=== PATIENT | female | born 1940 | race Caucasian/White ===

== ENCOUNTER 2017-12-25 15:18 | Inpatient (IN) ==
[2017-12-25] MEDS ORDERED: Ipratropium/Albuterol Neb 3 ML IH ONE (15:29)
[2017-12-25] MEDS ORDERED: methylPREDNISolone 125 MG/2 ML VIAL IVP ONE (15:36)
--- NOTE | 2017-12-25 15:58 | Emergency Department Note ---
Disposition Clinical Impression: Pneumonia Qualifiers: Pneumonia type: due to unspecified organism Laterality: bilateral Lung location : unspecified part of lung Qualified Code(s): J18.9 - Pneumonia, unspecified organism Disposition: Admitted As Inpatient Condition: Good Referrals: Baltazar Crane MD [Primary Care Provider] - Forms: ED Satisfaction Letter SOB HPI - General Chief Complaint: ED Shortness of Breath/Dyspnea Stated Complaint: ashley/chest melisa/wheezing Time Seen by Provider: 12/25/17 15:34 Source: patient, EMS Limitations: no limitations Nursing Notes Reviewed: Yes Vital Signs Reviewed: Yes - History of Present Illness Patient presents for evaluation of cough and difficulty in breathing. Patient has a history of asthma. Nonsmoker. Does not require home oxygen. States she has been dealing with intermittent asthma episodes for the last 2 weeks. Has had 3 visits to outpatient providers with breathing treatments and steroids. No previous antibiotics. Patient presents today febrile and hypoxic. Initial pulse ox by EMS was mid 80s. The patient has been placed on oxygen and has diffuse wheezing with associated rhonchi on the left. Nonproductive cough. Patient denies chest pain. Denies abdominal pain, nausea, vomiting, change in bowel movements, dysuria. - Related Data Home Medications Medication Instructions Recorded Confirmed Albuterol Neb [Proventil Neb] 2.5 mg IH Q8H 12/25/17 12/25/17 Aspirin Enteric Coated [Aspirin EC] 162 mg PO DAILY 12/25/17 12/25/17 Budesonide/Formoterol 160/4.5 2 puff IH BID 12/25/17 12/25/17 [Symbicort 160/4.5] Ezetimibe [Ezetimibe] 10 mg PO DAILY 12/25/17 12/25/17 Levothyroxine [Synthroid] 88 mcg PO 0630 12/25/17 12/25/17 Lisinopril [Zestril] 20 mg PO BID 12/25/17 12/25/17 Metoprolol Tartrate [Metoprolol 100 mg PO BID 12/25/17 12/25/17 Tartrate] Omeprazole [PriLOSEC] 20 mg PO BID 12/25/17 12/25/17 Allergies Allergy/AdvReac Type Severity Reaction Status Date / Time latex Allergy Hives Verified 12/25/17 15:27 Penicillins Allergy Hives Verified 12/25/17 15:27 Review of Systems: CONSTITUTIONAL: Fevers HEENT: Eyes: No visual changes. Ears, Nose, Throat: No hearing loss, difficulty talking or unable to swallow. SKIN: No rash or itching. CARDIOVASCULAR: No chest pain, chest pressure or chest discomfort. No palpitations or edema. RESPIRATORY: Shortness of breath and cough GASTROINTESTINAL: No anorexia, nausea, vomiting or diarrhea. No abdominal pain or blood. GENITOURINARY: No burning on urination or hematuria. NEUROLOGICAL: No headache, dizziness, syncope, paralysis, ataxia, numbness or tingling in the extremities. No change in bowel or bladder control. MUSCULOSKELETAL: No muscle pain, back pain, joint pain or stiffness. 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 - Social History Smoking Status: Former smoker Smokeless Tobacco Status: No Alcohol use: Reports: none Drug use: Reports: none Physical Exam General: Well appearing, nontoxic, no acute distress Head: Normocephalic Atraumatic Eyes: PERRL, EOMI ENT: Airway patent, no stridor Neck: supple, no meningismus Chest: Diffuse wheezing left-sided rhonchi Cardiac: Regular rhythm Abdomen: soft, nontender, nondistended; no guarding, rebound, or tenderness to percussion Musculoskeletal: Calves symmetric, nontender, no palpable cord Skin: No rash, normal skin tone Neuro: Alert and Oriented to person, place, and time; - General Limitations: no limitations General appearance: alert Course - Reevaluation(s) Reevaluation #1: Patient with elevated white count and lactic acid. Patient has pneumonia on chest x-ray. No recent antibiotic use her hospital stay. Patient will be admitted for community-acquired pneumonia. - Consultations Consultation #1: Discussed with hospitalist. Patient accepted for admission. Vital Signs Temperature 99.6 F 12/25/17 15:25 Pulse Rate 117 12/25/17 15:25 Respiratory Rate 26 12/25/17 15:25 Blood Pressure 139/83 12/25/17 15:25 O2 Sat by Pulse Oximetry 94 12/25/17 15:25 Temperature 99.6 F 12/25/17 15:25 Pulse Rate 109 12/25/17 19:44 Respiratory Rate 16 12/25/17 19:44 Blood Pressure 146/92 12/25/17 19:44 O2 Sat by Pulse Oximetry 92 12/25/17 19:44 Oxygen Delivery Oxygen Delivery Nasal Cannula Shortness of Breath/Dyspnea - Lab Data Result diagrams: 12/25/17 16:30 12/25/17 16:30 Lab Results 12/25/17 12/25/17 12/25/17 Range/Units 16:30 16:30 16:30 WBC 17.1 H (4.3-11.1) K/mcL RBC 4.26 (3.82-4.97) M/mcL Hgb 13.0 (11.5-15.4) g/dL Hct 40.4 (35.3-44.9) % MCV 94.8 (83.0-100.0) fL MCH 30.5 (28.0-33.3) pg MCHC 32.2 (31.6-35.5) g/dL RDW 13.5 (11.5-14.5) % Plt Count 305 (140-400) K/mcL MPV 9.8 (9.4-12.4) fL Immature Gran % 0.7 (0-4) % Seg Neutrophils % 75.7 % Lymphocytes % 11.0 % Monocytes % 12.4 % Eosinophils % 0.1 % Basophils % 0.1 % Neutrophils # 12.9 H (1.6-8.9) K/mcL Lymphocytes # 1.9 (0.6-4.6) K/mcL Monocytes # 2.1 H (0.0-1.3) K/mcL Eosinophils # 0.0 (0.0-0.6) K/mcL Basophils # 0.0 (0.0-0.2) K/mcL Sodium 134 L (136-145) mEq/L Potassium 3.9 (3.5-5.1) mEq/L Chloride 98 (98-107) mEq/L Carbon Dioxide 22 L (23-29) mEq/L BUN 32 H (8-23) mg/dL Creatinine 1.69 H (0.60-1.20) mg/dL Est GFR ( Amer) 35 L (> 60) Est GFR (Non-Af Amer) 29 L (> 60) BUN/Creatinine Ratio 19 (6-26) Glucose 123 H (70-105) mg/dL Calculated Osmolality 286 (280-300) Lactic Acid 2.9 H (0.5-2.2) mmol/L Calcium 9.2 (8.6-10.3) mg/dL Troponin I (< 0.04) ng/mL B-Natriuretic Peptide (Less than 100) pg/mL 12/25/17 12/25/17 12/25/17 Range/Units 16:30 16:30 18:35 WBC (4.3-11.1) K/mcL RBC (3.82-4.97) M/mcL Hgb (11.5-15.4) g/dL Hct (35.3-44.9) % MCV (83.0-100.0) fL MCH (28.0-33.3) pg MCHC (31.6-35.5) g/dL RDW (11.5-14.5) % Plt Count (140-400) K/mcL MPV (9.4-12.4) fL Immature Gran % (0-4) % Seg Neutrophils % % Lymphocytes % % Monocytes % % Eosinophils % % Basophils % % Neutrophils # (1.6-8.9) K/mcL Lymphocytes # (0.6-4.6) K/mcL Monocytes # (0.0-1.3) K/mcL Eosinophils # (0.0-0.6) K/mcL Basophils # (0.0-0.2) K/mcL Sodium (136-145) mEq/L Potassium (3.5-5.1) mEq/L Chloride (98-107) mEq/L Carbon Dioxide (23-29) mEq/L BUN (8-23) mg/dL Creatinine (0.60-1.20) mg/dL Est GFR ( Amer) (> 60) Est GFR (Non-Af Amer) (> 60) BUN/Creatinine Ratio (6-26) Glucose (70-105) mg/dL Calculated Osmolality (280-300) Lactic Acid 1.7 (0.5-2.2) mmol/L Calcium (8.6-10.3) mg/dL Troponin I 0.03 (< 0.04) ng/mL B-Natriuretic Peptide 93 (Less than 100) pg/mL Attestation Statement - Attestation Attestation: I examined this patient and my medical decision-making was reviewed with the Resident Physician. I agree with the documented findings, disposition and treatment plan as described except to the extent set forth below. Patient to ED with shortness of breath and cough. History of asthma. On examination she was found to be hypoxic. Rhonchi and coarse breath sounds on my evaluation. Plan. The patient has patchy airspace disease which is likely pneumonia. White blood cell count 17. Patient meets sepsis criteria based on her white blood cell count and tachycardia. Starting IV antibiotic and will admit. 35 minutes of critical care exclusive of separately billable procedures.
[2017-12-25 16:42] LABS: Basophils % 0.1 %; Eosinophils % 0.1 %; Hematocrit 40.4 % (35.3-44.9); Immature Granulocytes % 0.7 % (0-4); Lymphocytes # 1.9 K/mcL (0.6-4.6); Mean Corpuscular HGB Conc 32.2 g/dL (31.6-35.5); Mean Corpuscular Hemoglobin 30.5 pg (28.0-33.3); Mean Corpuscular Volume 94.8 fL (83.0-100.0); Mean Platelet Volume 9.8 fL (9.4-12.4); Monocytes # 2.1 K/mcL (0.0-1.3); Monocytes % 12.4 %; Neutrophils # 12.9 K/mcL (1.6-8.9); Platelet Count 305 K/mcL (140-400); Red Blood Count 4.26 M/mcL (3.82-4.97); Red Cell Distribution Width 13.5 % (11.5-14.5); Segmented Neutrophils % 75.7 %
[2017-12-25] MEDS ORDERED: Azithromycin 500 MG in D5% in Water 250 ML IVPB ONE (16:52)
[2017-12-25] MEDS ORDERED: cefTRIAXone 1,000 MG in Water for inj. (sterile) 10 ML IVP ONE (16:52)
[2017-12-25] MEDS ORDERED: 0.9 % Sodium Chloride 1,000 ML IVC ONE (16:52)
[2017-12-25 17:10] LABS: Calcium 9.2 mg/dL (8.6-10.3); Potassium 3.9 mEq/L (3.5-5.1)
[2017-12-25] MEDS: 0.9 % Sodium Chloride 1,000 ML IVC ONE ×2 (18:27→19:43)
[2017-12-25] MEDS ORDERED: 0.9 % Sodium Chloride 500 ML IVC ONE (18:51)
[2017-12-26] MEDS: Metoprolol 100 MG TABLET PO SCH ×3 (00:31→21:30)
[2017-12-26] MEDS: Aspirin Enteric Coated 81 MG Tablet PO SCH ×2 (00:31→08:02)
--- NOTE | 2017-12-26 00:43 | Internal Med History&Physical ---
<JimmysharonGerman - Last Filed: 12/26/17 03:04> Date of Encounter: 12/26/17 Time of Encounter: 22:00 Assessment and Plan (1) Sepsis Current visit: Yes Status: Acute Patient meets criteria for sepsis based on WBC of 17.1, Tachycardia, Tachypnea, Lactic acid of 2.9 on admission Likely secondary to PNA Patient received 1g Ceftriaxone and 500mg Azithromycin for CAP coverage in the ED Will continue abx repeat LA 1.7 blood cultures were drawn and results are pending. Qualifiers: Sepsis type: sepsis due to unspecified organism Qualified Code(s): A41.9 - Sepsis, unspecified organism (2) Pneumonia Current visit: Yes Status: Acute Patient with suspected PNA on CXR Patient with increased shortness of breath, and chest congestion. Patient sating at 94 requiring 2L NC Patient received 1g Ceftriaxone and 500mg Azithromycin for CAP coverage in the ED Will continue abx Patient with hx of asthma continue home asthma medications Qualifiers: Pneumonia type: due to unspecified organism Laterality: bilateral Lung location: lower lobe of lung Qualified Code(s): J18.9 - Pneumonia, unspecified organism (3) Asthma Current visit: Yes Status: Acute Patient with hx of asthma on symbicort and alubuterol nebulizer. continue home medications. Qualifiers: Asthma severity: unspecified severity Asthma persistence: unspecified Asthma complication type: unspecified Qualified Code(s): J45.909 - Unspecified asthma, uncomplicated (4) Hypertension Current visit: Yes Status: Acute Pt with hx of HTN on home metoprolol 100mg BID and Lisinopril 20mg holding lisinopril secondary to cr elevated above baseline. Qualifiers: Hypertension type: essential hypertension Qualified Code(s): I10 - Essential (primary) hypertension (5) CKD (chronic kidney disease), stage III Current visit: Yes Status: Acute Hx of CKD stage III current Cr 1.69 Baseline 1.2-1.44 will give subQ heparin as DVT ppx as a result (6) Hypothyroidism Current visit: Yes Status: Acute Pt on synthroid. continue home synthroid Qualifiers: Hypothyroidism type: unspecified Qualified Code(s): E03.9 - Hypothyroidism , unspecified Internal Medicine - H&P: HPI Chief complaint: Shortness of breath Admitted From: Emergency Dept Plans for Post Hospital Care: Home History of present illness: Ms. Gallardo is a 77 year old female c PMHx of asthma, HTN, hypothyroidism who reports to the ED c/o SOB and non productive cough x 3 weeks. Patient reports seeing her primary concerning this as well as an urgent care visit. Patient received asthma medications and steroids per patient did not receive abx. However review of eCW shows z pack prescribed on 12/10/17. Patient denies Fever, chills, chest pain, abd pain, N, V, D. Patient was hypoxic to the mid 90s in ED requiring 2L NC. Not on home oxygen. Patient's work up significant for WBC 17.1 , LA 2.9, mild bump in Cr to 1.69. CXR demonstrated possible PNA. Patient met sepsis criteria and was admitted. Past Med Surg Social Fam HX - Past Medical History Medical history: asthma, hypertension, thyroid disease Psychiatric history: anxiety - Social History Smoking Status: Former smoker Smokeless Tobacco Status: No Alcohol use: none Drug use: none Internal Medicine - H&P: Meds Albuterol Neb [Proventil Neb] 2.5 mg IH Q8H 12/25/17 [History] Aspirin Enteric Coated [Aspirin EC] 162 mg PO DAILY 12/25/17 [History] Budesonide/Formoterol 160/4.5 [Symbicort 160/4.5] 2 puff IH BID 12/25/17 [ History] Ezetimibe [Ezetimibe] 10 mg PO DAILY 12/25/17 [History] Levothyroxine [Synthroid] 88 mcg PO 0630 12/25/17 [History] Lisinopril [Zestril] 20 mg PO BID 12/25/17 [History] Metoprolol Tartrate [Metoprolol Tartrate] 100 mg PO BID 12/25/17 [History] Omeprazole [PriLOSEC] 20 mg PO BID 12/25/17 [History] 3 Allergy/AdvReac Type Severity Reaction Status Date / Time latex Allergy Hives Verified 12/25/17 15:27 Penicillins Allergy Hives Verified 12/25/17 15:27 All Systems PM: A 10-system review of systems was performed and is negative for pertinent findings except as documented above in the HPI. - Constitutional Vitals: Temp Pulse Resp BP Pulse Ox 98.2 F 106 18 148/70 93 12/25/17 20:40 12/25/17 20:40 12/25/17 20:40 12/25/17 20:40 12/26/17 00:34 General appearance: Present: A&O X 3, pleasant, no acute distress, answers questions appropriately - Head Head exam: Present: atraumatic, normocephalic - Eye Eye exam: Present: PERRL, conjuntiva pink, sclera anicteric Pupils: Present: PERRL - Neck Neck exam general surgery: Present: supple, trachea midline. Absent: lymphadenopathy - Respiratory Respiratory exam: Present: rhonchi (basilar). Absent: accessory muscle use, rales, wheezes Additional comments: upper respiratory noise - Cardiovascular Cardiovascular exam: Present: RRR, +S1, +S2 - GI/Abdominal GI/Abdominal exam: Present: normal bowel sounds, soft, no peritoneal signs. Absent: distended, tenderness - Extremities Exam Extremities exam: Present: warm, radial pulses palpable and symmetrical. Absent : calf tenderness, cyanotic, pedal edema - Neurological Exam Neurological exam: Present: CN II-XII intact, oriented X3, no focal deficits. Absent: facial droop, speech deficit - Skin Skin exam: Present: dry, intact Internal Med - H&P Results - Labs CBC & Chem 7: 12/25/17 16:30 12/25/17 16:30 <Stephen Ocampo P - Last Filed: 12/26/17 04:51> Date of Encounter: 12/26/17 Internal Medicine - H&P: HPI History of present illness: Ms. Gallardo is a 77 year old female All Systems PM: A 10-system review of systems was performed and is negative for pertinent findings except as documented above in the HPI. - Constitutional Vitals: Temp Pulse Resp BP Pulse Ox 97.9 F 95 17 111/71 94 12/26/17 00:40 12/26/17 04:00 12/26/17 04:00 12/26/17 04:00 12/26/17 04:00 Internal Med - H&P Results - Labs CBC & Chem 7: 12/25/17 16:30 12/25/17 16:30 - Attending Attestation I examined this patient and my medical decision-making was reviewed with the Resident Physician. I agree with the documented findings, disposition and treatment plan as described except to the extent set forth below. Patient seen and examined. Chart reviewed. I agree with the recommendation and plan discussed by the resident physician. Patient need cardiology opinion tomorrow.
--- NOTE | 2017-12-26 01:01 | Event Note ---
<German Poe - Last Filed: 12/26/17 02:58> Date of Encounter: 12/26/17 Time of Encounter: 00:44 Received page that patient was in a fib with RVR by nursing staff. Examined patient who is lying comfortably in bed. HR 140s-150s. BP 120s/80s. Patient reports feeling hear trace and feeling a little funny. Patient denies chest pain , shortness of breath. She reports she has felt liek this previously at home, but has never been told she had a fib before. She reports being told she has a heart murmur but denies any other cardiac history. Patient on 100mg metoprolol tartrate BID. Started by giving patient her evening dose. Patient remained tachycardic so 30 minutes later order for 5mg IV push Q5min x 3 doses as needed ordered. Patient's HR decreased to 110s-130s after metoprolol IV. Ordered 20mg IV diltiazem bolus. Which dropped patient's HR to 65. Patient will be started on diltiazem drip at rate of 5. Patient is hypothyroid on synthroid will check TSH level. Patient had recent sleep study which ruled out sleep apnea. Patient had an echo in February of 2016 which showed: Normal LV chamber size, wall thickness, and systolic function. LVEF 60%. Mild left ventricular diastolic dysfunction. Normal right ventricular structure and function. Mildly dilated left atrium. There is a probable PFO noted by color Doppler. No significant valvular dysfunction. No evidence of pulmonary hypertension. Left Ventricular Wall Motion: Rest Echo Findings All wall segments showed normal motion. Patient reports often feeling this same sensation at home but never bringing it up with her PCP. Patient was given dose of Sub Q heparin. 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 No hx of falls or bleeds. <Stephen Ocampo - Last Filed: 12/26/17 04:51> Date of Encounter: 12/26/17 I examined this patient and my medical decision-making was reviewed with the Resident Physician. I agree with the documented findings, disposition and treatment plan as described except to the extent set forth below.
[2017-12-26] MEDS: *HR* Metoprolol 5 MG/5 ML VIAL IVP SCH ×3 (01:23→01:48)
[2017-12-26] MEDS: *HR* Heparin 5,000 UNIT/ML VIAL SQ SCH ×4 (01:23→15:01)
[2017-12-26] MEDS ORDERED: 0.9 % Sodium Chloride 250 ML ONE (02:26)
[2017-12-26 05:06] LABS: Basophils % 0.1 %; Hematocrit 34.3 % (35.3-44.9); Immature Granulocytes % 0.6 % (0-4); Lymphocytes # 0.6 K/mcL (0.6-4.6); Lymphocytes % 3.7 %; Mean Corpuscular HGB Conc 32.4 g/dL (31.6-35.5); Mean Corpuscular Hemoglobin 30.2 pg (28.0-33.3); Mean Corpuscular Volume 93.2 fL (83.0-100.0); Mean Platelet Volume 10.1 fL (9.4-12.4); Monocytes # 0.6 K/mcL (0.0-1.3); Monocytes % 3.6 %; Neutrophils # 14.7 K/mcL (1.6-8.9); Platelet Count 275 K/mcL (140-400); Red Blood Count 3.68 M/mcL (3.82-4.97); Red Cell Distribution Width 13.6 % (11.5-14.5)
[2017-12-26 05:13] LABS: Hemoglobin 11.1 g/dL (11.5-15.4)
[2017-12-26 05:22] LABS: Calcium 8.5 mg/dL (8.6-10.3); Potassium 4.6 mEq/L (3.5-5.1)
[2017-12-26] MEDS: Budesonide/Formoterol 160/4.5 MDI IH SCH ×2 (07:52→22:51)
[2017-12-26] MEDS: Albuterol 2.5 MG/3 ML NEBULIZER IH SCH ×3 (07:52→22:51)
[2017-12-26] MEDS: cefTRIAXone 1,000 MG in Water for inj. (sterile) 20 ML 10 ML IVP SCH (08:02)
--- NOTE | 2017-12-26 10:13 | Internal Med Progress Note ---
<Nikolay Chapin - Last Filed: 12/26/17 10:11> Date of Encounter: 12/26/17 Time of Encounter: 10:11 - Assessment and plan (1) Sepsis Current Visit: Yes Status: Acute Assessment and plan: Likely secondary to pneumonia. Patient meet sepsis criteria with a lid white count 15.9 and tachycardia. Continue IV antibiotics of ceftriaxone and azithromycin day #2 Qualifiers: Sepsis type: sepsis due to unspecified organism Qualified Code(s): A41.9 - Sepsis, unspecified organism (2) Pneumonia Current Visit: Yes Status: Acute Assessment and plan: Chest x-ray showed possible pneumonia Continue with current antibiotic therapy of ceftriaxone and azithromycin day #2 Continue Oxygen supplementation Qualifiers: Pneumonia type: due to unspecified organism Laterality: bilateral Lung location: lower lobe of lung Qualified Code(s): J18.9 - Pneumonia, unspecified organism (3) Atrial fibrillation with RVR Current Visit: Yes Status: Acute Assessment and plan: Patient has new onset atrial fibrillation with rapid ventricular response. Patient was given Lopressor and has been started on a diltiazem drip Cardiology will be consulted. (4) CKD (chronic kidney disease), stage III Current Visit: Yes Status: Acute Assessment and plan: Patient has history of CAD stage III Patient's creatinine has returned to baseline at 1.34 GFR of 38 is approximately at the patient's baseline. (5) Hypertension Current Visit: Yes Status: Acute Assessment and plan: History of hypertension Continue with Lopressor Patient is currently normotensive no further antihypertensive medication is necessary at this time. Qualifiers: Hypertension type: essential hypertension Qualified Code(s): I10 - Essential (primary) hypertension (6) Asthma Current Visit: Yes Status: Acute Assessment and plan: Patient has history of asthma Continue her Symbicort and nebulized treatments Qualifiers: Asthma severity: unspecified severity Asthma persistence: unspecified Asthma complication type: unspecified Qualified Code(s): J45.909 - Unspecified asthma, uncomplicated (7) Hypothyroidism Current Visit: Yes Status: Acute Assessment and plan: Patient has history of hypothyroidism Current TSH of 1.427. Patient is currently therapeutic Continue with her home Synthroid. Qualifiers: Hypothyroidism type: unspecified Qualified Code(s): E03.9 - Hypothyroidism , unspecified - Subjective Interval history: Patient was admitted to the hospital for pneumonia. She states that she has been having wheezing and coughing for the past 3 weeks and has had multiple attempts at outpatient therapy but has failed. She says that she has been feeling short of breath and having more difficulty with breathing. Patient states that today she is feeling somewhat better and is not coughing quite as much. Patient denies any history of atrial fibrillation. However there was a report overnight that she had it for fibrillation with rapid ventricular response requiring medication intervention. Patient denies any home oxygen use. - Constitutional Vitals: Temp Pulse Resp BP Pulse Ox 97.9 F 93 16 115/80 95 12/26/17 00:40 12/26/17 07:06 12/26/17 07:57 12/26/17 07:06 12/26/17 07:57 General appearance: Present: A&O X 3, pleasant, no acute distress, answers questions appropriately - Head Head exam: Present: atraumatic, normocephalic - Neck Neck exam general surgery: Present: full ROM, normal inspection, trachea midline - Respiratory Respiratory exam: Present: rhonchi (Bilaterally) - Cardiovascular Cardiovascular exam: Present: irregular rhythm, +S1, +S2, tachycardia - GI/Abdominal GI/Abdominal exam: Present: normal bowel sounds, soft, no peritoneal signs. Absent: distended, tenderness - Extremities Exam Extremities exam: Present: full ROM, warm. Absent: pedal edema - Neurological Exam Neurological exam: Present: alert, oriented X3, no focal deficits. Absent: facial droop, speech deficit - Psychiatric Psychiatric exam: Present: normal affect, normal mood - Skin Skin exam: Present: dry, intact, warm Internal Medicine: Result - Labs CBC & Chem 7: 12/26/17 04:35 12/26/17 04:35 Consult Discharge Plan - Plan Referrals: Baltazar Crane MD [Primary Care Provider] - <Sudeep Mars - Last Filed: 12/26/17 11:04> Date of Encounter: 12/26/17 - Constitutional Vitals: Temp Pulse Resp BP Pulse Ox 97.9 F 93 16 115/80 95 12/26/17 00:40 12/26/17 07:06 12/26/17 07:57 12/26/17 07:06 12/26/17 07:57 Internal Medicine: Result - Labs CBC & Chem 7: 12/26/17 04:35 02/16/18 04:35 - Attending Attestation Sepsis secondary to community-acquired pneumonia, unknown agents Continue Rocephin and azithromycin New-onset atrial fibrillation with RVR Continue Cardizem drip, consult cardiology was consulted, anticoagulation would be recommended, the patient will choose adequate ablation therapy after talking to the cardiology team History of PFO, repeat echocardiogram No history of CVAs I examined this patient and my medical decision-making was reviewed with the Resident Physician. I agree with the documented findings, disposition and treatment plan as described except to the extent set forth below.
[2017-12-26] MEDS ORDERED: Furosemide 20 MG/2 ML VIAL IVP ONE (11:08)
[2017-12-26] MEDS: Azithromycin 500 MG in D5% in Water 250 ML IVPB SCH (14:43)
[2017-12-26] MEDS: Diltiazem CD (24hr) 120 MG CAPSULE PO SCH (14:43)
--- NOTE | 2017-12-26 15:02 | Cardiology Consult Note ---
Date of Encounter: 12/26/17 Time of Encounter: 14:30 Assessment and Plan (1) Pneumonia Current Visit: Yes Status: Acute Per cardiology: -Admitted with pneumonia. -Management per primary service. Qualifiers: Pneumonia type: due to unspecified organism Laterality: bilateral Lung location: lower lobe of lung Qualified Code(s): J18.9 - Pneumonia, unspecified organism (2) Atrial fibrillation Current Visit: Yes Status: Acute Per cardiology: -Atrial fibrilaltion noted per telemetry. -ON cardizem drip at 5mg/hour. -HR now controlled. -TTE pending. -[id number] score 6 (age, gender, HTN, TIA hx). -Previous TTE 02/2016 with LVEF 60%, mild diastolic dysufnction, mildly dilated left atrium, probably PFO, no significant valvular dysfunction, all wall segments with normal motion. -Will start cardizem CD 120mg daily. Stop cardizem drip 2 hours after oral cardizem given. -Will start therapeutic lovenox for anticoagulation. Pending TTE results, will determine intermediate oral anticoagulation. Qualifiers: Atrial fibrillation type: unspecified Qualified Code(s): I48.91 - Unspecified atrial fibrillation Discussion w patient/family: The assessment and plan as outlined above was discussed with the patient and/or family members who expressed understanding and agreement. All questions were answered. Thank you for involving us in the care of your patient. Please call with any questions. Discussed and reviewed with . History of Present Illness Consult date: 12/26/17 Requesting physician: Nikolay Chapin Consult reason: kirstie Chief complaint: cough, shortness of breath History of present illness: Ms. Gallardo is a 77 year old female with a relevant past medical history of HTN, asthma, MVP, CKD, hypothyroidism, hyperlipidemia, TIA. Patient presented to [facility] with complaints of shortness of breath and cough. Cardiology has been asked to see and evaluate patient due to new onset atrial fibrillation. Patient reports palpitations. States she has had palpitations at home intermittently for years. Patient deneis active bleeding or blood loss. Past Med Surg Social Fam HX - Past Medical History Attestation: Yes The following information was validated with the patient. Source: patient, old records reviewed Medical history: asthma, hypertension, thyroid disease Psychiatric history: anxiety - Social History Smoking Status: Former smoker Smokeless Tobacco Status: No Alcohol use: none Drug use: none Medications and Allergies Albuterol Neb [Proventil Neb] 2.5 mg IH Q8H 12/25/17 [History] Aspirin Enteric Coated [Aspirin EC] 162 mg PO DAILY 12/25/17 [History] Budesonide/Formoterol 160/4.5 [Symbicort 160/4.5] 2 puff IH BID 12/25/17 [ History] Ezetimibe [Ezetimibe] 10 mg PO DAILY 12/25/17 [History] Levothyroxine [Synthroid] 88 mcg PO 0630 12/25/17 [History] Lisinopril [Zestril] 20 mg PO BID 12/25/17 [History] Metoprolol Tartrate [Metoprolol Tartrate] 100 mg PO BID 12/25/17 [History] Omeprazole [PriLOSEC] 20 mg PO BID 12/25/17 [History] 3 Allergy/AdvReac Type Severity Reaction Status Date / Time latex Allergy Hives Verified 12/25/17 15:27 Penicillins Allergy Hives Verified 12/25/17 15:27 All Systems Review: A 10-system review of systems was performed and is negative for pertinent findings except as documented above in the HPI. - Cardiovascular Cardiovascular: as per HPI, dyspnea at rest, dyspnea on exertion - Respiratory Respiratory: cough Physical Examination Vital Signs, Last 4 Hours Temp Pulse Resp BP Pulse Ox 12/26/17 14:50 16 95 12/26/17 11:11 97.8 F 98 20 147/93 97 General: Conversant, No Apparent Distress HEENT: Atraumatic, Normocephaly, Mucus Membranes Moist Neck: No JVD, Normal carotid pulses Cardiac: Normal S1 and S2, No Murmur, Other (Irregularly irregular ) Lungs: Normal Breath Sounds, No Wheeze, Rales, Rhonchi Neuro: Alert and responsive, No focal deficits noted Abdomen: Soft, Non-Tender Skin: No rashes noted on visualized skin Musculoskeletal: No Chest Wall Tenderness Extremities: No Clubbing, No Cyanosis, No Edema, Normal Pulses Results 12/26/17 04:35 12/26/17 04:35 Impressions Chest X-Ray 12/25/17 15:36 IMPRESSION: Mild patchy airspace disease the lung bases bilaterally, likely atelectasis, although pneumonia does remain in the differential. D/ / Matthew Ott MD / Matthew Ott MD Interpreting Provider: Matthew Ott MD Active Medications Albuterol Sulfate (Proventil Neb) 2.5 mg IH [id number] ROQUE PRN Reason: Protocol Stop: 06/27/18 07:01 Last Admin: 12/26/17 14:48 Dose: 2.5 mg Aspirin (Aspirin Ec) 81 mg PO DAILY ROQUE Stop: 06/27/18 00:31 Last Admin: 12/26/17 08:02 Dose: 81 mg Budesonide/Formoterol Fumarate (Symbicort) 2 puff IH BIDR ROQUE PRN Reason: Protocol Stop: 06/27/18 10:01 Last Admin: 12/26/17 07:52 Dose: 2 puff Diltiazem HCl (Cardizem Cd) 120 mg PO DAILY ROQUE Stop: 06/27/18 14:31 Last Admin: 12/26/17 14:43 Dose: 120 mg Enoxaparin Sodium (Lovenox *Pharmacy Wt Based*) 90 mg 1 mg/kg (90 mg) SQ Q12HR ROQUE PRN Reason: Protocol Stop: 06/27/18 18:01 Azithromycin 500 mg/ Dextrose 250 mls @ 252 mls/hr IVPB Q24H ROQUE Stop: 06/27/18 15:01 Last Admin: 12/26/17 14:43 Dose: 252 mls/hr Ceftriaxone Sodium 1,000 mg/ (Sterile Water) 10 mls @ 300 mls/hr IVP DAILY ROQUE Stop: 06/27/18 09:01 Last Admin: 12/26/17 08:02 Dose: 300 mls/hr Diltiazem HCl 125 mg/ Sodium (Chloride) 125 mls @ 5 mls/hr IVC .Q24H ROQUE PRN Reason: 5 MG/HR Stop: 06/27/18 02:01 Last Admin: 12/26/17 02:27 Dose: 5 mg/hr, 5 mls/hr Levothyroxine Sodium (Synthroid) 88 mcg PO DAILY@0630 ROQUE Stop: 06/27/18 06:31 Last Admin: 12/26/17 05:54 Dose: 88 mcg Metoprolol Tartrate (Lopressor) 100 mg PO BID [facility] Stop: 06/27/18 00:16 Last Admin: 12/26/17 08:02 Dose: 100 mg Metoprolol Tartrate (Lopressor) 5 mg IVP Q5MIN [facility] Stop: 12/28/17 01:01 Last Admin: 12/26/17 01:48 Dose: 5 mg Omeprazole (Prilosec) 20 mg PO BIDAC ROQUE PRN Reason: Protocol Stop: 06/27/18 07:31 Last Admin: 12/26/17 08:01 Dose: 20 mg Laboratory Tests 12/26/17 12/26/17 12/26/17 04:35 04:35 04:35 WBC 15.9 H Hgb 11.1 L D Potassium 4.6 Creatinine 1.34 H TSH 1.427 - Imaging and Cardiology Chest Xray: report reviewed Echo: pending, report reviewed - EKG Interpretation EKG results cardiology: personally reviewed (ECG on admission with ST.), other ( Telemetry reviewed with average HR previous 12 hours noted to be 95, atrial fibrillation. PVCs noted. Currenty 70-80s at bedside.) Consult Discharge Plan - Plan Referrals: Baltazar Crane MD [Primary Care Provider] -
[2017-12-26] MEDS: *HR* Enoxaparin 100 MG/ML SYRINGE SQ SCH (17:37)
[2017-12-27] MEDS ORDERED: Acetaminophen 325 MG TABLET PO PRN (03:08)
[2017-12-27 03:58] LABS: Basophils % 0.1 %; Hematocrit 37.5 % (35.3-44.9); Hemoglobin 11.8 g/dL (11.5-15.4); Immature Granulocytes % 0.8 % (0-4); Lymphocytes # 1.5 K/mcL (0.6-4.6); Lymphocytes % 7.7 %; Mean Corpuscular HGB Conc 31.5 g/dL (31.6-35.5); Mean Corpuscular Volume 95.4 fL (83.0-100.0); Mean Platelet Volume 10.7 fL (9.4-12.4); Monocytes # 1.4 K/mcL (0.0-1.3); Monocytes % 7.4 %; Platelet Count 299 K/mcL (140-400); Red Blood Count 3.93 M/mcL (3.82-4.97); Red Cell Distribution Width 13.6 % (11.5-14.5)
[2017-12-27 05:05] LABS: Calcium 8.8 mg/dL (8.6-10.3); Potassium 5.4 mEq/L (3.5-5.1)
[2017-12-27] MEDS: *HR* Enoxaparin 100 MG/ML SYRINGE SQ SCH (06:34)
[2017-12-27] MEDS: Budesonide/Formoterol 160/4.5 MDI IH SCH ×2 (08:06→22:57)
[2017-12-27] MEDS: Albuterol 2.5 MG/3 ML NEBULIZER IH SCH ×3 (08:06→22:57)
[2017-12-27] MEDS: cefTRIAXone 1,000 MG in Water for inj. (sterile) 20 ML 10 ML IVP SCH (08:44)
[2017-12-27] MEDS: Diltiazem CD (24hr) 120 MG CAPSULE PO SCH (08:46)
[2017-12-27] MEDS: Metoprolol 100 MG TABLET PO SCH ×2 (08:47→20:51)
[2017-12-27] MEDS: Aspirin Enteric Coated 81 MG Tablet PO SCH (08:47)
--- NOTE | 2017-12-27 10:53 | Cardiology Progress Note ---
Date of Encounter: 12/27/17 Time of Encounter: 08:00 Assessment and Plan (1) Pneumonia Current Visit: Yes Status: Acute Per cardiology: -Admitted with pneumonia. -Management per primary service. Qualifiers: Pneumonia type: due to unspecified organism Laterality: bilateral Lung location: lower lobe of lung Qualified Code(s): J18.9 - Pneumonia, unspecified organism (2) Atrial fibrillation Current Visit: Yes Status: Acute Per cardiology: -Atrial fibrilaltion noted per telemetry. -Average HR previous 12 hours noted to be 83, a.fib. -ON beta sandra and po cardizem. -TTE with LVEF preserved. No significant valvular dysfunction, all wall segments with normal motion. -[id number] score 6 (age, gender, HTN, TIA hx). On therapeutic lovenox. -Sent priced check for eliquis. Spoke with [facility]. Eliquis $3.70/ month. -Started eliquis 5mg BID. -Cardiology will sign off and will follow in outpatient setting. Follow up set. Qualifiers: Atrial fibrillation type: unspecified Qualified Code(s): I48.91 - Unspecified atrial fibrillation Discussion w patient/family: The assessment and plan as outlined above was discussed with the patient who expressed understanding and agreement. All questions were answered. Thank you for involving us in the care of your patient. Please call with any questions. Discussed and reviewed with . Subjective Principal diagnosis: pneumonia, atrial fibrillation Interval history: Pateint states she feels better this morning. Denies complaints. Objective Vital Signs, Last 4 Hours Resp Pulse Ox 12/27/17 08:09 16 98 Vital Signs Temperature 99.6 F 12/25/17 15:25 Pulse Rate 117 12/25/17 15:25 Respiratory Rate 26 12/25/17 15:25 Blood Pressure 139/83 12/25/17 15:25 O2 Sat by Pulse Oximetry 94 12/25/17 15:25 Temperature 97.6 F 12/27/17 06:50 Pulse Rate 72 12/27/17 06:50 Respiratory Rate 16 12/27/17 08:09 Blood Pressure 117/72 12/27/17 06:50 O2 Sat by Pulse Oximetry 98 12/27/17 08:09 Oxygen Delivery Oxygen Delivery Room Air General: Conversant, No Apparent Distress HEENT: Atraumatic, Normocephaly, Mucus Membranes Moist Neck: No JVD, Normal carotid pulses Cardiac: Normal S1 and S2, No Murmur, Other (Irregularly irregular ) Lungs: Normal Breath Sounds, No Wheeze, Rales, Rhonchi Neuro: Alert and responsive, No focal deficits noted Abdomen: Soft, Non-Tender Skin: No rashes noted on visualized skin Musculoskeletal: No Chest Wall Tenderness Extremities: No Clubbing, No Cyanosis, No Edema, Normal Pulses Results 12/27/17 02:47 12/27/17 04:32 Lab Results Impressions Echocardiogram 12/26/17 10:50 Impressions: LVEF 60-65%. Normal LV chamber size, wall thickness and function. Indeterminate diastolic function. Normal right ventricular structure and function. Mildly dilated left atrium. No evidence of PFO with agitated saline contrast. No evidence of pulmonary hypertension. Left Ventricular Wall Motion: Rest Echo Findings All wall segments showed normal motion. Findings: Study Quality * Technically adequate exam. ECG Findings * Atrial fibrillation. Left Ventricle * LVEF 60-65%. * Normal LV chamber size, wall thickness and function. * Indeterminate diastolic function. Right Ventricle * Normal right ventricular structure and function. Left Atrium * Mildly dilated left atrium. Right Atrium * Normal right atrial size. Interatrial Septum * No evidence of PFO with agitated saline contrast. Aortic Valve * Trileaflet aortic valve. * Mildly sclerotic aortic valve leaflets. * No aortic regurgitation. * No aortic stenosis. Mitral Valve * Normal mitral valve structure and function. * No mitral regurgitation. * No mitral stenosis. Tricuspid Valve * Normal tricuspid valve structure and function. * Trace tricuspid regurgitation. * No evidence of pulmonary hypertension. Pulmonic Valve * Pulmonic valve not well visualized. * No pulmonic regurgitation. Aorta * Normally sized aortic root. Pericardium * The pericardium appears normal. IVC * Normal IVC dimensions and inspiratory collapse. Pulmonary Artery * Normal visualized portions of the main pulmonary artery. Active Medications Acetaminophen (Tylenol) 650 mg PO Q6HR PRN PRN Reason: Pain Stop: 06/28/18 03:09 Last Admin: 12/27/17 03:25 Dose: 650 mg Albuterol Sulfate (Proventil Neb) 2.5 mg IH [id number] ROQUE PRN Reason: Protocol Stop: 06/27/18 07:01 Last Admin: 12/27/17 08:06 Dose: 2.5 mg Apixaban (Eliquis) 5 mg PO BID [facility] Stop: 06/28/18 21:01 Aspirin (Aspirin Ec) 81 mg PO DAILY ROQUE Stop: 06/27/18 00:31 Last Admin: 12/27/17 08:47 Dose: 81 mg Budesonide/Formoterol Fumarate (Symbicort) 2 puff IH BIDR ROQUE PRN Reason: Protocol Stop: 06/27/18 10:01 Last Admin: 12/27/17 08:06 Dose: 2 puff Diltiazem HCl (Cardizem Cd) 120 mg PO DAILY ROQUE Stop: 06/27/18 14:31 Last Admin: 12/27/17 08:46 Dose: 120 mg Azithromycin 500 mg/ Dextrose 250 mls @ 252 mls/hr IVPB Q24H ROQUE Stop: 06/27/18 15:01 Last Admin: 12/26/17 14:43 Dose: 252 mls/hr Ceftriaxone Sodium 1,000 mg/ (Sterile Water) 10 mls @ 300 mls/hr IVP DAILY ROQUE Stop: 06/27/18 09:01 Last Infusion: 12/27/17 08:58 Dose: Infused Levothyroxine Sodium (Synthroid) 88 mcg PO DAILY@0630 ROQUE Stop: 06/27/18 06:31 Last Admin: 12/27/17 06:34 Dose: 88 mcg Metoprolol Tartrate (Lopressor) 100 mg PO BID [facility] Stop: 06/27/18 00:16 Last Admin: 12/27/17 08:47 Dose: 100 mg Metoprolol Tartrate (Lopressor) 5 mg IVP Q5MIN ROQUE Stop: 12/28/17 01:01 Last Admin: 12/26/17 01:48 Dose: 5 mg Omeprazole (Prilosec) 20 mg PO BIDAC [facility] PRN Reason: Protocol Stop: 06/27/18 07:31 Last Admin: 12/27/17 08:46 Dose: 20 mg Laboratory Tests 12/27/17 12/27/17 02:47 04:32 WBC 19.1 H Hgb 11.8 Creatinine 1.49 H - Imaging and Cardiology Chest Xray: report reviewed Echo: report reviewed - EKG Interpretation EKG results cardiology: other (Telemetry reviewed with average HR previous 12 hours noted to be 83, atrial fibrillation. PVCS noted.) Consult Discharge Plan - Plan Referrals: Baltazar Crane MD [Primary Care Provider] -
--- NOTE | 2017-12-27 14:27 | Internal Med Progress Note ---
<Yoav Reyes - Last Filed: 12/27/17 14:33> Date of Encounter: 12/27/17 Time of Encounter: 14:22 - Assessment and plan (1) Sepsis Current Visit: Yes Status: Acute Assessment and plan: Sepsis most likely secondary to pneumonia. Patient meet sepsis criteria with a elevated white count and tachycardia on admission. Continue IV antibiotics of ceftriaxone and azithromycin day #3 Qualifiers: Sepsis type: sepsis due to unspecified organism Qualified Code(s): A41.9 - Sepsis, unspecified organism (2) Pneumonia Current Visit: Yes Status: Acute Assessment and plan: Afebrile and appears in no acute distress. Chest x-ray showed possible pneumonia. Continue with current day 3 of IV antibiotics. Continue Oxygen supplementation Qualifiers: Pneumonia type: due to unspecified organism Laterality: bilateral Lung location: lower lobe of lung Qualified Code(s): J18.9 - Pneumonia, unspecified organism (3) Atrial fibrillation with RVR Current Visit: Yes Status: Acute Assessment and plan: Patient has new onset atrial fibrillation with rapid ventricular response. Overnight, the patient had AFIB with RVR and is now rate controlled. Cardiology consulted. Echocardiogram show LVEF preserved. Per cardiology, Eliquis 5mg BID has been started. Continue patient on beta sandra and Cardizem PO per cardiology recommendations. Cardiology has signed off and will follow in outpatient setting. (4) CKD (chronic kidney disease), stage III Current Visit: Yes Status: Acute Assessment and plan: Patient has history of CAD stage III. Potassium is 5.4 today. Patient's creatinine is 1.49 today. GFR of 34 today. Will order 15gm of Kayexalate and check repeat labs in the AM. Continue to monitor the patient closely. (5) Hypertension Current Visit: Yes Status: Acute Assessment and plan: History of hypertension. Continue with Lopressor. Patient is currently normotensive. no further antihypertensive medication is necessary at this time. Qualifiers: Hypertension type: essential hypertension Qualified Code(s): I10 - Essential (primary) hypertension (6) Asthma Current Visit: Yes Status: Acute Assessment and plan: Patient has history of asthma. Continue her Symbicort and nebulized treatments Qualifiers: Asthma severity: unspecified severity Asthma persistence: unspecified Asthma complication type: unspecified Qualified Code(s): J45.909 - Unspecified asthma, uncomplicated (7) Hypothyroidism Current Visit: Yes Status: Acute Assessment and plan: Patient has history of hypothyroidism. Current TSH of 1.427. Patient is currently therapeutic. continue with her home Synthroid. Qualifiers: Hypothyroidism type: unspecified Qualified Code(s): E03.9 - Hypothyroidism , unspecified - Time Spent With Patient 25 - 35 minutes - Subjective Interval history: The patient was seen and evaluated at bedside. The patient is afebrile and appears in no acute distress. Patient states that she is not feeling very well today because she did not sleep comfortably last night. She complains of a nonproductive cough that makes it difficult for her to breathe and sleep comfortably. She admits shortness of breath but denies any difficulty breathing at this time. She states that overall she feels better since admission. Patient is any fever, headache, vision changes, chest pain, difficulty breathing, Wenden pain, diarrhea, constipation, nausea and vomiting, numbness intentionally, or any weaknesses. The patient has no other concerns at this time. - Constitutional Vitals: Temp Pulse Resp BP Pulse Ox 97.8 F 75 16 131/79 95 12/27/17 11:56 12/27/17 11:56 12/27/17 11:56 12/27/17 11:56 12/27/17 11:56 General appearance: Present: A&O X 3, pleasant, no acute distress, answers questions appropriately - Head Head exam: Present: atraumatic - Eye Eye exam: Present: EOMI, PERRL - ENT ENT exam: Present: mucous membranes moist - Neck Neck exam general surgery: Present: normal inspection, supple. Absent: lymphadenopathy, tenderness - Respiratory Respiratory exam: Present: rhonchi, wheezes (diffuse wheezes). Absent: accessory muscle use, chest wall tenderness, respiratory distress, stridor, tachypnea - Expanded Respiratory Exam Location: rhonchi: Left, Right, Upper, wheezes: Left, Right, Lower - Cardiovascular Cardiovascular exam: Present: RRR, +S1, +S3. Absent: gallop, rubs, systolic murmur - GI/Abdominal GI/Abdominal exam: Present: soft. Absent: distended, guarding, rebound, rigid, tenderness - Extremities Exam Extremities exam: Present: warm, radial pulses palpable and symmetrical. Absent : calf tenderness, joint swelling, tenderness - Neurological Exam Neurological exam: Present: alert, CN II-XII intact, oriented X3, no focal deficits, strengths equal and symetr throughout. Absent: altered, pronater drift, facial droop, speech deficit - Skin Skin exam: Present: dry, intact, warm Internal Medicine: Result - Labs CBC & Chem 7: 12/27/17 02:47 12/27/17 04:32 Labs: Short CBC 12/27/17 Range/Units 02:47 WBC 19.1 H (4.3-11.1) K/mcL Hgb 11.8 (11.5-15.4) g/dL Hct 37.5 (35.3-44.9) % Plt Count 299 (140-400) K/mcL Neutrophils # 16.0 H (1.6-8.9) K/mcL BMP 12/27/17 04:32 Sodium 140 Potassium 5.4 H Chloride 110 H Carbon Dioxide 20 L BUN 33 H Creatinine 1.49 H Glucose 136 H Calcium 8.8 - Impressions Impressions Echocardiogram 12/26/17 10:50 Impressions: LVEF 60-65%. Normal LV chamber size, wall thickness and function. Indeterminate diastolic function. Normal right ventricular structure and function. Mildly dilated left atrium. No evidence of PFO with agitated saline contrast. No evidence of pulmonary hypertension. Left Ventricular Wall Motion: Rest Echo Findings All wall segments showed normal motion. Findings: Study Quality * Technically adequate exam. ECG Findings * Atrial fibrillation. Left Ventricle * LVEF 60-65%. * Normal LV chamber size, wall thickness and function. * Indeterminate diastolic function. Right Ventricle * Normal right ventricular structure and function. Left Atrium * Mildly dilated left atrium. Right Atrium * Normal right atrial size. Interatrial Septum * No evidence of PFO with agitated saline contrast. Aortic Valve * Trileaflet aortic valve. * Mildly sclerotic aortic valve leaflets. * No aortic regurgitation. * No aortic stenosis. Mitral Valve * Normal mitral valve structure and function. * No mitral regurgitation. * No mitral stenosis. Tricuspid Valve * Normal tricuspid valve structure and function. * Trace tricuspid regurgitation. * No evidence of pulmonary hypertension. Pulmonic Valve * Pulmonic valve not well visualized. * No pulmonic regurgitation. Aorta * Normally sized aortic root. Pericardium * The pericardium appears normal. IVC * Normal IVC dimensions and inspiratory collapse. Pulmonary Artery * Normal visualized portions of the main pulmonary artery. Consult Discharge Plan - Plan Referrals: Baltazar Crane MD [Primary Care Provider] - <Sudeep Mars H - Last Filed: 12/27/17 16:15> Date of Encounter: 12/27/17 - Constitutional Vitals: Temp Pulse Resp BP Pulse Ox 97.8 F 78 16 119/72 95 12/27/17 15:40 12/27/17 15:40 12/27/17 15:40 12/27/17 15:40 12/27/17 15:40 Internal Medicine: Result - Labs CBC & Chem 7: 12/27/17 02:47 12/27/17 04:32 Labs: Short CBC 12/27/17 Range/Units 02:47 WBC 19.1 H (4.3-11.1) K/mcL Hgb 11.8 (11.5-15.4) g/dL Hct 37.5 (35.3-44.9) % Plt Count 299 (140-400) K/mcL Neutrophils # 16.0 H (1.6-8.9) K/mcL BMP 12/27/17 04:32 Sodium 140 Potassium 5.4 H Chloride 110 H Carbon Dioxide 20 L BUN 33 H Creatinine 1.49 H Glucose 136 H Calcium 8.8 - Impressions Impressions Echocardiogram 12/26/17 10:50 Impressions: LVEF 60-65%. Normal LV chamber size, wall thickness and function. Indeterminate diastolic function. Normal right ventricular structure and function. Mildly dilated left atrium. No evidence of PFO with agitated saline contrast. No evidence of pulmonary hypertension. Left Ventricular Wall Motion: Rest Echo Findings All wall segments showed normal motion. Findings: Study Quality * Technically adequate exam. ECG Findings * Atrial fibrillation. Left Ventricle * LVEF 60-65%. * Normal LV chamber size, wall thickness and function. * Indeterminate diastolic function. Right Ventricle * Normal right ventricular structure and function. Left Atrium * Mildly dilated left atrium. Right Atrium * Normal right atrial size. Interatrial Septum * No evidence of PFO with agitated saline contrast. Aortic Valve * Trileaflet aortic valve. * Mildly sclerotic aortic valve leaflets. * No aortic regurgitation. * No aortic stenosis. Mitral Valve * Normal mitral valve structure and function. * No mitral regurgitation. * No mitral stenosis. Tricuspid Valve * Normal tricuspid valve structure and function. * Trace tricuspid regurgitation. * No evidence of pulmonary hypertension. Pulmonic Valve * Pulmonic valve not well visualized. * No pulmonic regurgitation. Aorta * Normally sized aortic root. Pericardium * The pericardium appears normal. IVC * Normal IVC dimensions and inspiratory collapse. Pulmonary Artery * Normal visualized portions of the main pulmonary artery. - Attending Attestation Sepsis secondary to community-acquired pneumonia, unknown agents Continue Rocephin and azithromycin New-onset atrial fibrillation with RVR consulted cardiology Eliquis History of PFO No history of CVAs I examined this patient and my medical decision-making was reviewed with the Resident Physician. I agree with the documented findings, disposition and treatment plan as described except to the extent set forth below.
[2017-12-27] MEDS: Azithromycin 500 MG in D5% in Water 250 ML IVPB SCH (16:00)
[2017-12-27] MEDS: Apixaban 5 MG TABLET PO SCH (20:51)
[2017-12-28 02:05] LABS: Basophils % 0.1 %; Eosinophils % 0.2 %; Hemoglobin 11.3 g/dL (11.5-15.4); Immature Granulocytes % 0.7 % (0-4); Lymphocytes # 1.8 K/mcL (0.6-4.6); Lymphocytes % 13.8 %; Mean Corpuscular HGB Conc 32.3 g/dL (31.6-35.5); Mean Corpuscular Hemoglobin 30.5 pg (28.0-33.3); Mean Corpuscular Volume 94.3 fL (83.0-100.0); Mean Platelet Volume 10.1 fL (9.4-12.4); Monocytes # 0.8 K/mcL (0.0-1.3); Monocytes % 6.5 %; Neutrophils # 10.1 K/mcL (1.6-8.9); Platelet Count 276 K/mcL (140-400); Red Blood Count 3.71 M/mcL (3.82-4.97); Red Cell Distribution Width 13.5 % (11.5-14.5); Segmented Neutrophils % 78.7 %
[2017-12-28 03:15] LABS: Calcium 8.1 mg/dL (8.6-10.3)
[2017-12-28] MEDS: Budesonide/Formoterol 160/4.5 MDI IH SCH (07:55)
[2017-12-28] MEDS: Albuterol 2.5 MG/3 ML NEBULIZER IH SCH (07:59)
[2017-12-28] MEDS: Aspirin Enteric Coated 81 MG Tablet PO SCH (08:30)
[2017-12-28] MEDS: Apixaban 5 MG TABLET PO SCH (08:30)
[2017-12-28] MEDS: Metoprolol 100 MG TABLET PO SCH (08:30)
[2017-12-28] MEDS: Diltiazem CD (24hr) 120 MG CAPSULE PO SCH (08:30)
[2017-12-28] MEDS: cefTRIAXone 1,000 MG in Water for inj. (sterile) 20 ML 10 ML IVP SCH (08:30)
--- NOTE | 2017-12-28 08:40 | Discharge Summary ---
<Yoav Reyes - Last Filed: 12/28/17 09:16> Date of Encounter: 12/28/17 Time of Encounter: 08:15 - Discharge Diagnosis (1) Sepsis Priority: Primary Status: Acute Qualifiers: Sepsis type: sepsis due to unspecified organism Qualified Code(s): A41.9 - Sepsis, unspecified organism (2) Pneumonia Priority: Primary Status: Acute Qualifiers: Pneumonia type: due to unspecified organism Laterality: bilateral Lung location: lower lobe of lung Qualified Code(s): J18.9 - Pneumonia, unspecified organism (3) Atrial fibrillation with RVR Priority: Secondary Status: Acute (4) CKD (chronic kidney disease), stage III Priority: Secondary Status: Acute (5) Hypertension Priority: Secondary Status: Acute Qualifiers: Hypertension type: essential hypertension Qualified Code(s): I10 - Essential (primary) hypertension (6) Asthma Priority: Secondary Status: Acute Qualifiers: Asthma severity: unspecified severity Asthma persistence: unspecified Asthma complication type: unspecified Qualified Code(s): J45.909 - Unspecified asthma, uncomplicated (7) Hypothyroidism Priority: Secondary Status: Acute Qualifiers: Hypothyroidism type: unspecified Qualified Code(s): E03.9 - Hypothyroidism , unspecified - Discharge Medications Prescriptions: Apixaban [Eliquis] 5 mg PO BID #60 tablet Cefdinir [Omnicef] 300 mg PO BID #6 capsule Home Medications: Albuterol Neb [Proventil Neb] 2.5 mg IH Q8H 12/25/17 [History] Aspirin Enteric Coated [Aspirin EC] 162 mg PO DAILY 12/25/17 [History] Budesonide/Formoterol 160/4.5 [Symbicort 160/4.5] 2 puff IH BID 12/25/17 [ History] Ezetimibe 10 mg PO DAILY 12/25/17 [History] Levothyroxine [Synthroid] 88 mcg PO 0630 12/25/17 [History] Lisinopril [Zestril] 20 mg PO BID 12/25/17 [History] Metoprolol Tartrate 100 mg PO BID 12/25/17 [History] Omeprazole [PriLOSEC] 20 mg PO BID 12/25/17 [History] Apixaban [Eliquis] 5 mg PO BID #60 tablet 12/28/17 [Rx] Cefdinir [Omnicef] 300 mg PO BID #6 capsule 12/28/17 [Rx] Allergies/Adverse Reactions: 3 Allergy/AdvReac Type Severity Reaction Status Date / Time latex Allergy Hives Verified 12/25/17 15:27 Penicillins Allergy Hives Verified 12/25/17 15:27 Procedures/tests Complete & Pending: Procedures Performed prior 72 hours Category Date Time Status ECG 12 lead ECG [ECG] Stat Y 12/26/17 14:36 Ordered EV echocardiogram Routine Y 12/26/17 10:50 Completed Date of admission: 12/26/17 04:53 Primary care physician: Baltazar Crane MD Consults: 12/26/17 09:59 Consult to Cardiology [CONS] Routine Comment: Consulting Provider: [facility] Reason for Consult: new onset a Fib Time Notified: 10:31 Call Completed: Yes Discharging clinician: Yoav Reyes Anticipated date of discharge: 12/28/17 - Patient Status Disposition: Home, Self-Care Condition: Good Functional capacity at discharge: independent ambulation Overall status at discharge: patient is progressing back to baseline - Discharge Instructions Follow Up With: Baltazar Crane MD [Primary Care Provider] - [facility] [Provider Group] Additional Instructions: 1. Please follow up with your primary care physician within one week. 2. Please follow up with cardiology within 2-3 weeks. 3. Please take all your home medications as prescribed. 4. Please take the Eliquis and the antibiotics as prescribed. 5. Please return to the hospital for any new or worsening symptoms. - Diet and Activity Activity: increase activity as tolerated Diet: advance to your usual diet, low salt diet Interval History: The patient was seen and evaluated at bedside this morning. Patient is afebrile and appears to be in no acute distress. Patient states that she feels well today. She admits she is still having a non-productive cough, but it is improving. She states that she did not require oxygen last night and slept comfortably. The patient states that she is ready to return home. Patient denies any fever and chills, headaches, vision changes, chest pain, shortness of breath, difficulty breathing, abdominal pain, numbness and tingling, and any weaknesses. The patient has no other concerns at this time. Hospital course: Ms. Gallardo is a 77 year old female with a past medical history of asthma not dependent on home oxygen, HTN, hypothyroidism, and new onset of AFIB with RVR who was admitted on 12/26/17 for sepsis most likely secondary to pneumonia. The patient reported to the ED complaining of shortness of breath and nonproductive cough for the past three days. Patient was hypoxic to the mid 90s in ED requiring 2L NC. Patient's work up significant for WBC 17.1, LA 2.9, mild bump in Cr to 1.69. CXR reads mild patchy airspace disease the lung bases bilaterally likely pneumonia versus atelectasis. On admission, patient was in AFIB with RVR with heart rates 140s-150s and blood pressure of 120s/80s. Patient denies any chest pain or shortness of breath. Patient on 100mg metoprolol tartrate BID. Patient remained tachycardic after evening dose so 30 minutes later order for 5mg IV push Q5min x 3 doses as needed ordered. Patient' s HR decreased to 110s-130s after metoprolol IV. Ordered 20mg IV diltiazem bolus , which dropped patient's HR to 65. Cardiology was consulted. Per cardiology, patient was started on Eliquis and patient will follow up with cardiology as outpatient. Patient has received Rocephin and Azithromycin for community acquired pneumonia. Patient white blood count has improved since admission. Vitals are stable. Patient oxygen saturation is 94% on room air. Patient has no other concerns at this time. - Time Spent with Patient Total time spent providing and/or coordinating discharge services: Greater than 30 minutes - Constitutional Vitals: Temp Pulse Resp BP Pulse Ox 97.7 F 79 18 139/98 96 12/28/17 06:49 12/28/17 06:49 12/28/17 07:55 12/28/17 06:49 12/28/17 07:55 General appearance: Present: A&O X 3, pleasant, no acute distress, answers questions appropriately - Head Head exam: Present: atraumatic - Eye Eye exam: Present: EOMI, normal appearance, PERRL - ENT ENT exam: Present: mucous membranes moist - Neck Neck exam general surgery: Present: full ROM, normal inspection, supple. Absent : lymphadenopathy, tenderness - Respiratory Respiratory exam: Present: rhonchi, wheezes. Absent: accessory muscle use, chest wall tenderness - Expanded Respiratory Exam Location: rhonchi: Left, Right, Upper, wheezes: Left, Right, Lower - Cardiovascular Cardiovascular exam: Present: +S1, +S2, tachycardia (HR was 110 pn my exam. Patient was completing her breathing treatment on my exam. ). Absent: bradycardia, gallop, rubs - GI/Abdominal GI/Abdominal exam: Present: soft. Absent: distended, firm, guarding, tenderness - Extremities Exam Extremities exam: Present: warm, radial pulses palpable and symmetrical. Absent : calf tenderness, pedal edema, tenderness - Neurological Exam Neurological exam: Present: alert, CN II-XII intact, oriented X3, no focal deficits. Absent: pronater drift, facial droop, speech deficit - Skin Skin exam: Present: dry, intact, warm <Sudeep Mars - Last Filed: 12/28/17 10:01> Date of Encounter: 12/28/17 Procedures/tests Complete & Pending: Procedures Performed prior 72 hours Category Date Time Status ECG 12 lead ECG [ECG] Stat Y 12/26/17 14:36 Ordered EV echocardiogram Routine Y 12/26/17 10:50 Completed Date of admission: 12/26/17 04:53 Primary care physician: Baltazar Crane MD Consults: 12/26/17 09:59 Consult to Cardiology [CONS] Routine Comment: Consulting Provider: Cardiology Geno Reason for Consult: new onset a Fib Time Notified: 10:31 Call Completed: Yes Hospital course: Ms. Gallardo is a 77 year old female - Time Spent with Patient Total time spent providing and/or coordinating discharge services: - Constitutional Vitals: Temp Pulse Resp BP Pulse Ox 97.7 F 79 18 139/98 93 12/28/17 06:49 12/28/17 06:49 12/28/17 07:55 12/28/17 06:49 12/28/17 08:38 - Attending Attestation Sepsis secondary to community-acquired pneumonia, unknown agents Continue cefdinir New-onset atrial fibrillation with RVR cardiology recommended Eliquis PFO not found on new Echocardiogram No history of CVAs PRESCRIPTION FOR DILTIAZEM 120 MG DAILY WAS PROVIDED Time spent on this discharge: 40 minutes I examined this patient and my medical decision-making was reviewed with the Resident Physician. I agree with the documented findings, disposition and treatment plan as described except to the extent set forth below.
[2017-12-28 11:35] VITALS: BP 125/84
--- NOTE | 2017-12-28 17:40 | Electrocardiograph Report ---
[place] [id number] Test Date: 2017-12-25 Pat Name: Prosper Gallardo Department: 104 Room: [facility] Gender: F [employer]: : [id number] Requested By: Michael Paniagua Order Number: [id number] Reading MD: Tanika Ruiz Measurements Intervals [place] Rate: 125 P: 55 LA: 138 QRS: 61 QRSD: 83 T: 29 QT: 288 QTc: 362 Interpretive Statements SINUS TACHYCARDIA ABNORMAL RHYTHM ECG Electronically Signed On 12-28-2017 17:38:58 EST by Tanika Ruiz
== END 2017-12-28 16:37 | disposition home or self-care (01) | DRG 871 ==
LOC: EMEROO 15:18 → 2NENU 15:18
PROVIDERS: ADMIT Internal Medicine; ATTEND Internal Medicine